=== PATIENT | male | born 1945 | race Caucasian/White ===

== ENCOUNTER 2017-02-20 08:58 | Day surgery (SDC) | payer MEDICARE, OTHER ==
--- NOTE | ~2017-02-20 | EGD ---
EGD REPORT [facility] [address] [place] [address] [id number] NAME: RED NAVARRO : [birth year] STATUS : REG [facility]#: [id number] AGE: 71 ADM/REG DATE : 02/20/17 MR#: [id number] REPORT SERV DATE: 02/20/17 DICTATED BY: RENZO WEISS DATE: 02/20/17 REPORT STATUS : Draft TRANSCRIBED BY: [employer] DATE: 02/20/17 Endoscopy Center Patient Name: Red Navarro Date of : 1945 Attending MD: RENZO WEISS MD Procedure Date No Time: 02/20/2017 Procedure: Colonoscopy Indications: Screening in patient at increased risk: Family history of 1st-degree relative with colorectal cancer Referring MD: SEMAJ GODFREY MD Medicines: as per anesthesia Complications: No immediate complications. Procedure: After I obtained informed consent, the scope was passed under direct vision. Throughout the procedure, the patient's blood pressure, pulse, and oxygen saturations were monitored continuously. The PCF [id number] was introduced through the anus and advanced to the cecum, identified by appendiceal orifice and ileocecal valve. The colonoscopy was performed without difficulty. The patient tolerated the procedure. The quality of the bowel preparation was adequate to identify polyps. Findings: The perianal and digital rectal examinations were normal. Internal hemorrhoids were found during endoscopy and were mild. Impression: - Internal hemorrhoids. Recommendation: - Repeat colonoscopy in 5 years for surveillance. Procedure Code(s): --- Professional --- 16128, Colonoscopy, flexible, proximal to splenic flexure; diagnostic, with or without collection of specimen(s) by brushing or washing, with or without colon decompression (separate procedure) Diagnosis Code(s): --- Professional --- K64.8, Other hemorrhoids Z12.11, Encounter for screening for malignant neoplasm of colon Z80.0, Family history of malignant neoplasm of digestive organs CPT copyright 2013 [employer]. All rights reserved. EGD REPORT [facility] [address] [address] NAME: RED NAVARRO : [birth year] STATUS : REG [facility] PAT#: [id number] AGE: 71 ADM/REG DATE : 02/20/17 MR#: [id number] REPORT SERV DATE: 02/20/17 DICTATED BY: RENZO WEISS. DATE: 02/20/17 REPORT STATUS : Draft TRANSCRIBED BY: [employer] DATE: 02/20/17 The codes documented in this report are preliminary and upon plate grainer review may be revised to meet current compliance requirements. RENZO WEISS MD 02/20/2017 11:28 AM This report has been signed electronically. Number of Addenda: 0 Note Initiated On: 02/20/2017 10:57 AM Scope Withdrawal Time 0 hours 8 minutes 10 seconds [address] [facility] [id number]
[~2017-02-20 08:58] MED LIST: *UNABLE1; AMB10 PO; ASAB PO; CONSTULOSE PO; FORTAMET1000 MG PO; GLUCOPHAGE1000 MG PO; GLUCPH PO; GRAPE SEED EXTRACT; JARDI10T PO; KAPIDEX60 MG PO; LEVEMFLXPN SC; LEVEMIR SC; LOP25 PO; METOPROLOL PO; MULTIPLE VIT PO; MULTIVIT/MIN PO; MULTIVITAMI1 PO; NEUR300 PO; OMEGA-3 KRILL PO; PLAVIX PO; PRIN5 PO; PROTONIX PO; SIMVASTATIN PO; SINGULAIR1 PO; STARLIX PO; STARLIX120 PO; WELCHOL625 MG OR; ZOCOR20 PO; [UNRECOGNIZED DRUG - OTHER] PO
== END 2017-02-20 23:59 | disposition home or self-care (01) ==
LOC: DMU 08:58
PROVIDERS: Internal Medicine Gastroenterology
PROC: 0DJD8ZZ Inspection of Lower Intestinal Tract, Via Natural or Artificial Opening Endoscopic (ICD-10-PCS; principal; 2017-02-20 09:30)
DX: Z12.11 Encounter for screening for malignant neoplasm of colon (principal); K64.8 Other hemorrhoids; I25.10 Atherosclerotic heart disease of native coronary artery without angina pectoris; I10 Essential (primary) hypertension; E11.9 Type 2 diabetes mellitus without complications; K74.60 Unspecified cirrhosis of liver; Z80.0 Family history of malignant neoplasm of digestive organs; Z95.1 Presence of aortocoronary bypass graft; Z95.5 Presence of coronary angioplasty implant and graft; Z88.5 Allergy status to narcotic agent; Z79.82 Long term (current) use of aspirin; Z79.4 Long term (current) use of insulin; Z79.899 Other long term (current) drug therapy
CPT/HCPCS: 82962; 85049